=== PATIENT | male | born 1995 | race Caucasian/White ===

== ENCOUNTER 2017-10-19 16:54 | Emergency (ER) | payer OTHER ==
[~2017-10-19] VITALS: Ht 165.1 cm; Wt 72.7 kg
[2017-10-19 16:58] VITALS: BP 126/84
== END 2017-10-19 19:30 | disposition left against medical advice (07) ==
LOC: EMS 16:55
DX: R07.81 Pleurodynia (principal); Z53.21 Procedure and treatment not carried out due to patient leaving prior to being seen by health care provider